=== PATIENT | female | born 2000 | race Caucasian/White ===

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

== ENCOUNTER 2019-02-07 16:36 | Emergency (ER) | payer BC ==
[~2019-02-07] VITALS: Ht 165.1 cm; Wt 90.9 kg
[~2019-02-07 16:36] MED LIST changes: +IBUP-844 PO
[2019-02-07] MEDS ORDERED: HYDROcodone/APAP 5 MG/325 MG (LORTAB) TAB PO ONE (17:15)
[2019-02-07] MEDS ORDERED: AUGMENTIN 875 MG TAB (AMOXICILLIN/CLAVULANATE) ONE (17:31)
--- NOTE | 2019-02-07 17:35 | Diagnostic Imaging Report ---
EXAMINATION: Right elbow radiographs, 3 views. COMPARISON: None. HISTORY: 18-year-old female, dog bite. FINDINGS: There are areas of questionable lucency within the soft tissues. There is no identified radiopaque foreign body. There is no elbow joint effusion. There is no identified acute fracture. There is no elbow joint dislocation. IMPRESSION: 1. Questionable areas of abnormal lucency within the soft tissues which could relate to a penetrating type injury. 2. No identified radiopaque foreign body. 3. No identified acute osseous abnormality. Dictated by: Dictated on workstation # [id number]
--- NOTE | 2019-02-07 17:48 | ED Integumentary General ---
General Chief Complaint: Bite-Animal/Human/Insect Stated Complaint: DOG BITE Nursing Triage Note: Pt amb to triage with c/o dog bite @ approx 1600 on this day. [place] up a dog fight when her sisters melisa dangelo bit her Rt forearm. Pt reports the vincent retriever is up to date on vaccines. Pt reports to be current on her tetanus vaccine. Controlled bleeding noted to bite wounds on Rt anterior and superior forearm. A&OX4. Source: patient Exam Limitations: no limitations History of Present Illness Date Seen by Provider: Feb 07, 2019 Time Seen by Provider: 17:07 Initial Comments 18-year-old female who presents to the emergency room with complaints of a dog bite to her right elbow. She reports that she was breaking up a fight between her sister's dog when the dog bit her right arm. She has 4 puncture wounds to the right elbow 2 on the anterior and 2 on the posterior surfaces. She is currently on her tetanus vaccine in the dog is up-to-date on all shots. Timing/Duration: just prior to arrival Associated Symptoms: denies symptoms Allergies and Home Medications Allergies Coded Allergies: NKANo Known Allergies (Unverified Allergy, Mild, 07/09/09) Home Medications Ibuprofen 600 Mg Tablet, 600 MG PO Q6HR Prescribed by: IBIS BANSAL on 08/26/18 0746 Jcq763/Iron Fumarate/FA/Dss 1 Each Tablet, 1 EACH PO DAILY, (Reported) Past Sjaszvx-Mjduqd-Wqedmr Hx Patient Social History Alcohol Use: Denies Use Recreational Drug Use: No Smoking Status: Never a Smoker 2nd Hand Smoke Exposure: No Recent Foreign Travel: No Contact w/Someone Who Travel: No Recent Infectious Disease Expo: No Recent Hopitalizations: No Ebola Symptoms: Denies Symptoms Listed Seasonal Allergies Seasonal Allergies: Yes Past Medical History Surgeries: No Respiratory: No Cardiac: No Neurological: No Genitourinary: No Gastrointestinal: No Musculoskeletal: No Endocrine: No HEENT: No Cancer: No Psychosocial: No Integumentary: No Blood Disorders: No Adverse Reaction/Blood Tranf: No Physical Exam Vital Signs Vital Signs - First Documented 02/07/19 16:54 Temp 36.9 Pulse 84 Resp 18 B/P (MAP) 139/90 Pulse Ox 98 Capillary Refill : Progress/Results/Core Measures Results/Orders My Orders Orders - DANIELLE ISIDRO Elbow, Right, 3 Views (02/07/19 17:07) Hydrocodone/Apap 5/325 Tablet (Lortab 5 (02/07/19 17:15) Amoxicillin/Clavulanate Tablet (Augmenti (02/08/19 07:00) Amoxicillin/Clavulanate Tablet (Augmenti (02/07/19 17:31) Medications Given in ED Current Medications Medications Dose Ordered Sig/[facility] Route Start Time Stop Time Status Last Admin Dose Admin Acetaminophen/ Hydrocodone Bitart 1 tab ONCE ONCE PO 02/07/19 17:15 02/07/19 17:21 DC 02/07/19 17:34 1 TAB Vital Signs/I&O 02/07/19 16:54 Temp 36.9 Pulse 84 Resp 18 B/P (MAP) 139/90 Pulse Ox 98 Departure Impression Primary Impression: Dog bite Disposition: 01 HOME, SELF-CARE Condition: Stable/Unchanged Departure-Patient Inst. Decision time for Depature: 17:47 Referrals: TIFF BLUM MD (PCP/Family) Primary Care Physician Patient Instructions: Animal Bites (DC) Add. Discharge Instructions: Take medication as directed. Follow-up with your primary care provider within 1 week for recheck. Watch for signs of infection such as increased redness, swelling, drainage, pain. Ice to the sore areas at 20 minute intervals. Tylenol and ibuprofen as directed by the bottle for pain relief. All discharge instructions reviewed with patient and/or family. Voiced understanding. Scripts Amoxicillin/Potassium Clav (Augmentin 875-125 Tablet) 1 Each Tablet 1 EACH PO BID for 7 Days, #14 TAB 0 Refills Prov: DANIELLE ISIDRO 02/07/19 DANIELLE ISIDRO Feb 07, 2019 17:48 POS
[2019-02-07] MEDS ORDERED: AMOX-358 PO (18:07)
[2019-02-08] MEDS ORDERED: AUGMENTIN 875 MG TAB (AMOXICILLIN/CLAVULANATE) PO SCH (07:00)
== END 2019-02-07 18:08 | disposition home or self-care (01) ==
LOC: EDUNIT# 16:36 → ER 16:38
DX: S51.051A Open bite, right elbow, initial encounter (principal); W54.0XXA Bitten by dog, initial encounter
CPT/HCPCS: 73080

== ENCOUNTER → 2022-03-11 | Outpatient (CLI) | payer BC ==
[~2022-03-11] MED LIST changes: +AMOX-358 PO
--- NOTE | 2022-03-11 16:45 | Diagnostic Imaging Report ---
PROCEDURE: US OB SINGLE FETUS <14 WKS. TECHNIQUE: Multiple real-time grayscale images were obtained over the gravid uterus in various projections. INDICATION: Check dates. EXAMINATION: OB sonogram less than 14 weeks 03/11/2022 FINDINGS: There is a single live intrauterine gestation currently measuring 14 weeks 6 days by today's sonogram. There is a heart rate of 156 bpm. Placenta is anterior with no evidence for previa. Estimated date of delivery is 09/03/2022. The maternal adnexa unremarkable. Ovaries not visualized. No free fluid noted. IMPRESSION: 1. Single live intrauterine gestation currently measuring 14 weeks 6 days with an estimated date of delivery of 09/03/2022. Full survey recommended at 18-20 weeks. Dictated by: Dictated on workstation # [id number]
== END ==
LOC: RAD 10:58
PROVIDERS: ATTEND Family Medicine
DX: Z34.92 Encounter for supervision of normal pregnancy, unspecified, second trimester (principal); Z3A.14 14 weeks gestation of pregnancy
CPT/HCPCS: 76801

== ENCOUNTER → 2022-03-15 | Outpatient (CLI) | payer BC ==
[2022-03-15 14:47] LABS: BASOPHILS % (AUTO) 0 % (0-10); EOSINOPHILS # (AUTO) 0.1 10^3/uL (0.0-0.3); EOSINOPHILS % (AUTO) 1 % (0-10); HEMATOCRIT 37 % (35-52); LYMPHOCYTES # (AUTO) 1.9 10^3/uL (1.0-4.0); LYMPHOCYTES % (AUTO) 20 % (12-44); MEAN CORPUSCULAR HEMOGLOBIN 30 pg (25-34); MEAN CORPUSCULAR HGB CONC 35 g/dL (32-36); MEAN CORPUSCULAR VOLUME 87 fL (80-99); MONOCYTES # (AUTO) 0.4 10^3/uL (0.0-1.0); MONOCYTES % (AUTO) 5 % (0-12); NEUTROPHILS # (AUTO) 6.9 10^3/uL (1.8-7.8); NEUTROPHILS % (AUTO) 74 % (42-75); PLATELET COUNT 193 10^3/uL (130-400); WHITE BLOOD COUNT 9.3 10^3/uL (4.3-11.0)
== END ==
LOC: LAB 14:14
PROVIDERS: ATTEND Family Medicine
DX: Z34.91 Encounter for supervision of normal pregnancy, unspecified, first trimester (principal); Z3A.00 Weeks of gestation of pregnancy not specified
CPT/HCPCS: 36415; 80055; 84443; 87389; 87491; 87591

== ENCOUNTER → 2022-04-24 | Outpatient (CLI) | payer BC ==
--- NOTE | 2022-04-24 16:23 | Diagnostic Imaging Report ---
INDICATION: patient, survey. TECHNIQUE: Multiple real-time grayscale images were obtained over the gravid uterus. COMPARISON: Comparison made with 03/11/2022. FINDINGS: A single live intrauterine fetus is seen measuring 20 weeks 4 days in size with sonographic EDC of 09/07/2022. There has been normal interval growth compared to the prior study. The fetus is in cephalic presentation. Amniotic fluid index is 8.9 cm. Placenta is anterior and without evidence of previa. heart rate is 146 BPM. Cervical length is 5.7 cm. Distance of the tip of the internal os to the placenta was 5.5 cm. There is no subchorionic bleed. There is no adnexal free fluid. survey demonstrates normal-appearing kidneys and bladder. Normal-appearing stomach was seen. Intracranial ventricles appear normal. Four-chamber heart view appeared normal. Normal views of the spine were seen. Three-vessel cord and cord insertion appear normal. Biometrical measurements are as follows: Biparietal 4.26 cm, age 19 weeks 0 days. Head circumference 17.8 cm, age 20 weeks 2 days. Abdominal circumference 15.48 cm, age 20 weeks 5 days. Femur length 3.69 cm, age 21 weeks 6 days. Sonographic estimate age: 20 weeks 4 days. Sonographic estimated date of delivery: 09/03/22. Estimated Weight: 391 gm (+/- 57 gm). LMP percentile: 36%. heart rate: 146 beats per minute. number: 1 of 1. IMPRESSION: Single live intrauterine fetus measuring 20 weeks 4 days in size with normal interval growth compared to the prior study. There is no detectable abnormality at this time. Dictated by: Dictated on workstation # [id number]
== END ==
LOC: RAD 13:16
PROVIDERS: ATTEND Family Medicine
DX: Z34.92 Encounter for supervision of normal pregnancy, unspecified, second trimester (principal); Z3A.20 20 weeks gestation of pregnancy
CPT/HCPCS: 76805

== ENCOUNTER → 2022-05-20 | Outpatient (CLI) | payer BC ==
[2022-05-20 10:25] LABS: BASOPHILS % (AUTO) 0 % (0-10); EOSINOPHILS # (AUTO) 0.1 10^3/uL (0.0-0.3); EOSINOPHILS % (AUTO) 1 % (0-10); HEMATOCRIT 36 % (35-52); HEMOGLOBIN 12.2 g/dL (11.5-16.0); LYMPHOCYTES % (AUTO) 16 % (12-44); MEAN CORPUSCULAR HEMOGLOBIN 30 pg (25-34); MEAN CORPUSCULAR HGB CONC 34 g/dL (32-36); MEAN CORPUSCULAR VOLUME 89 fL (80-99); MEAN PLATELET VOLUME 12.5 fL (9.0-12.2); MONOCYTES # (AUTO) 0.5 10^3/uL (0.0-1.0); MONOCYTES % (AUTO) 4 % (0-12); NEUTROPHILS # (AUTO) 9.4 10^3/uL (1.8-7.8); NEUTROPHILS % (AUTO) 77 % (42-75); PLATELET COUNT 172 10^3/uL (130-400); WHITE BLOOD COUNT 12.2 10^3/uL (4.3-11.0)
== END ==
LOC: LAB 08:56
PROVIDERS: ATTEND Family Medicine
DX: Z34.92 Encounter for supervision of normal pregnancy, unspecified, second trimester (principal); Z3A.00 Weeks of gestation of pregnancy not specified
CPT/HCPCS: 36415; 82947; 82950; 85025; 86900; 86901

== ENCOUNTER 2022-08-26 01:35 | Inpatient (IN) | payer BC, MEDICAID ==
[~2022-08-26] VITALS: Ht 167.7 cm; Wt 105.5 kg
--- OUTSIDE RECORDS SUMMARY | 2022-08-26 18:08 | XMS REPORT ---
Author Author [facility] Address Unknown Phone Unavailable Care Team Providers Care Dress Cap Maker Name Role Phone LUISA LEIGH Unavailable PROBLEMS Type Condition ICD9-CM Code IRN96-CH Code Onset Dates Condition S tatus W/U Status Risk SNOMED Code Notes Problem Enlarged tonsils J35.1 confirmed [id number] Problem Migraine with aura and without status migrainosu s, not intractable G43.109 confirmed [id number] Problem Sore throat J02.9 confirmed Problem Missed period N92.6 confirmed [id number] Problem Encounter for supervision of normal firs t in first trimester Z34.01 Dec, confirmed [id number] _Migrated ALLERGIES No Known Allergies ENCOUNTERS from 1999 to 2022-08-19 Encounter Location Date Provider Diagnosis [facility] [address] [facility] [id number] [place] [address] Aug, LUISA LEIGH Nausea with vomiting , unspecified R11.2 and Diarrhea, unspecified R19.7 IMMUNIZATIONS Vaccine Route Administration Date Status GARDASIL (HPV-3 DOSE) Unknown Feb 21, 2011 Pending GARDASIL (HPV-3 DOSE) Unknown Nov 12, 2010 Pending PRIVATE HEP B (PEDS/ADOLESCENT, 3-DOSE) Unknown Mar 26, 2000 Administered PRIVATE HEP B (PEDS/ADOLESCENT, 3-DOSE) Unknown May Administered influenza IIV3 (history) Unknown Dec 24, 2011 Pending influenza IIV3 (history) Unknown Jan 12, 2014 Pending PRIVATE TWINRIX (HEP A/B) IM Intramuscular Nov 05, 2021 Admin istered VFC PENTACEL (DTAP/HIB/IPV) Unknown 1999 Admi nistered VFC PENTACEL (DTAP/HIB/IPV) Unknown 1999 Admi nistered PRIVATE DTAP (DAPTACEL) Unknown Mar 14, 2002 Administ ered PRIVATE TDAP (ADACEL) Unknown September 11, 2011 Pending influenza IIV3 (history) Unknown Jan 14, 2013 Pending PRIVATE FLULAVAL QUAD 0.5ML (6 MO AND UP) 2019 IM Intramuscular Dec 22, 2018 Administered PRIVATE TDAP (BOOSTRIX) IM Intramuscular Nov 05, 2021 Adminis tered influenza IIV3 (history) Unknown Nov 26, 2010 Pending PRIVATE HEP A (PEDS/ADOLESCENT-2 DOSE) Unknown Oct 17 010 Pending PRIVATE VARICELLA Unknown September 11, 2011 Pending PRIVATE VARICELLA Unknown Oct 17, 2009 Pending GARDASIL (HPV-3 DOSE) Unknown Dec 25, 2012 Pending VFC PENTACEL (DTAP/HIB/IPV) Unknown 1999 Admi nistered PRIVATE KINRIX (DTaP/IPV) Unknown June 15, 2003 Admini stered PRIVATE HIB (PEDVAX-3 DOSE) Unknown Mar 26, 2000 Admi nistered PRIVATE HEP B (PEDS/ADOLESCENT, 3-DOSE) Unknown 1999 Administered PRIVATE PROQUAD (MMR/VARICELLA) Unknown Mar 26, 2000 Administered PRIVATE MMR Unknown June 15, 2003 Administered SOCIAL HISTORY Sex Assigned At : Social History Observation Description Sex Assigned At Unknown Alcohol Screen (Audit-C) Question Answer Notes Did you have a drink containing alcohol in the past year? No Points 0 Interpretation Negative Sexual History Question Answer Notes Had sex in the past 12 months (vaginal, oral, or anal)? Yes with Men only PHQ2 Question Answer Notes In the last 2 weeks, how often have you had little interest or pleasure in doing things? Not at all In the last 2 weeks, how often have you been feeling down, depressed, or hopeless? Not at all Total PHQ2 Score 0 REASON FOR REFERRAL No Information VITAL SIGNS Height 67 in Aug, Weight 187 lbs Aug, Weight-kg 84.82 kg Aug, Temperature 97.9 degrees Fahrenheit Aug, Heart Rate 100 bpm Aug, Respiratory Rate 20 bpm Aug, Oximetry 99 % Aug, BMI 29.29 kg/m2 Aug, Blood pressure systolic 120 mmHg Aug, Blood pressure diastolic 70 mmHg Aug, MEDICATIONS Medication SIG (Take, Route, Frequency, Duration) Notes Start Da te End Date Status Norethindrone 0.35 MG 1 tablet Orally Once a day for 28 day(s) Oct, Active Nabumetone 500 MG 1 tablet Orally TID PRN prn May, Active Nexplanon Active PROCEDURES No Information RESULTS No Results REASON FOR VISIT Abdominal pain, vomiting, diarrhea MEDICAL (GENERAL) HISTORY Type Description Date Medical History enlarged tonsils Hospitalization History childbirth only Goals Section No Information Health Concerns No Information MEDICAL EQUIPMENT No Information MENTAL STATUS No Information FUNCTIONAL STATUS No Information ASSESSMENTS Encounter Date Diagnosis Assessment Notes Treatment Notes Treatm ent Clinical Notes Aug, Nausea with vomiting, unspecified (ICD-10 - R11. 2) I recommend that you take a daily probiotic for at least 2 weeks. Please drink pleanty of fluids to keep hydrated. , Nausea and Vomiting: Care Instructions material was published Aug, Diarrhea, unspecified (ICD-10 - R19.7) Aug, Other Medications as d irected, supportive care and monitoring, rest as able, push fluids to maintain hydration. Office visit it not improving. Patient verbalized understanding of above instructions. PLAN OF TREATMENT Medication Medication Name Sig Start Date Stop Date Norethindrone 0.35 MG 1 tablet Orally Once a day for 28 day(s) 2 3 Oct, 2021 Treatment Notes Assessment Notes Clinical Notes Nausea with vomiting, unspecified I recommend that you take a daily probiotic for at least 2 weeks. Please drink pleanty of fluids to keep hydrated. , Nausea and Vomiting: Care Instructions material was published Future Test Test Name Order Date TEST, URINE (IN HOUSE) [id number] Next Appt Details if not improving with PCP or reg follow up Reason: Insurance Providers Payer Name Payer Address Payer Phone Insured Name Patient Relati onship to Insured Coverage Start Date Coverage End Date Subscriber Number Group Nu mber [facility] [address] [facility] [address] [phone] Lakshmi Augustin Self - patient is the insured [id number] [place] [address] [facility] [phone] Lakshmi Augustin Natural Child - Insured has Financial Responsibility [id number] MEDICATIONS ADMINISTERED Medication Instructions Date of Administration Dosage RHOGAM FULL DOSE May, DEPO MEDROL 80 MG/ML Nov, 80 mg ZOFRAN (IM) 2 MG/ML (PER 1 MG) 40 MG/20 ML 2019 6 mg DEPO PROVERA (150 MG/ML) Nov, 150 mg RHOGAM FULL DOSE May, 1500 U
[2022-08-26] MEDS ORDERED: MINERAL OIL 30 ML UDC TOP PRN (18:45)
[2022-08-26] MEDS ORDERED: LACTATED RINGERS 1,000 ML IV ONE (18:45)
[2022-08-26 19:09] VITALS: BP 133/68
[2022-08-26] MEDS: D5 LR IV SOLUTION 1,000 ML IV SCH (19:27)
[2022-08-26 19:36] LABS: BASOPHILS % (AUTO) 0 % (0-10); HEMATOCRIT 33 % (35-52); LYMPHOCYTES % (AUTO) 20 % (12-44); MEAN CORPUSCULAR VOLUME 84 fL (80-99); MEAN PLATELET VOLUME 13.1 fL (9.0-12.2)
[2022-08-26 19:38] LABS: EOSINOPHILS # (AUTO) 0.1 10^3/uL (0.0-0.3); EOSINOPHILS % (AUTO) 1 % (0-10); HEMOGLOBIN 10.7 g/dL (11.5-16.0); LYMPHOCYTES # (AUTO) 2.2 10^3/uL (1.0-4.0); MEAN CORPUSCULAR HEMOGLOBIN 27 pg (25-34); MEAN CORPUSCULAR HGB CONC 33 g/dL (32-36); MONOCYTES # (AUTO) 0.7 10^3/uL (0.0-1.0); MONOCYTES % (AUTO) 7 % (0-12); NEUTROPHILS # (AUTO) 7.9 10^3/uL (1.8-7.8); NEUTROPHILS % (AUTO) 72 % (42-75); PLATELET COUNT 194 10^3/uL (130-400); WHITE BLOOD COUNT 11.1 10^3/uL (4.3-11.0)
[2022-08-26 19:52] LABS: SMEAR SCAN COMMENT YES
[2022-08-26 21:22] VITALS: BP 130/67
[2022-08-26] MEDS ORDERED: CATHETER FLUSH 10 ML SYR IV SCH (22:00)
[2022-08-26 22:25] VITALS: BP 133/63
[2022-08-26 22:36] LABS: BILIRUBIN,URINE NEGATIVE (NEGATIVE); CLARITY,URINE CLEAR; COLOR,URINE YELLOW; GLUCOSE, URINE (UA) NEGATIVE (NEGATIVE); KETONES,URINE NEGATIVE (NEGATIVE); LEUKOCYTE ESTERASE ,URINE NEGATIVE (NEGATIVE); NITRITE,URINE NEGATIVE (NEGATIVE); PROTEIN,URINE NEGATIVE (NEGATIVE)
[2022-08-26 22:44] LABS: BACTERIA,URINE FEW /HPF
[2022-08-26 22:45] LABS: AMORPHOUS SEDIMENT,UR MOD AMOR URATES /LPF; GRANULAR CASTS,URINE 0-2 /LPF
[2022-08-26 23:22] VITALS: BP 118/66
[2022-08-27] VITALS (67 sets, daily range): BP systolic 97–135; BP diastolic 47–90
[2022-08-27] MEDS: D5 LR IV SOLUTION 1,000 ML IV SCH ×3 (04:54→18:30)
[2022-08-27] MEDS ORDERED: OXYTOCIN PRE-MIX DRIP 500 ML IV ONE (06:52)
[2022-08-27] MEDS ORDERED: OXYTOCIN PRE-MIX DRIP 500 ML IV SCH ×3 (07:00→23:45)
--- NOTE | 2022-08-27 07:15 | History & Physical-OB ---
OB - Chief Complaint & HPI Date/Time Date of Admission: Date of Admission: Aug 26, 2022 at 18:00 Date seen by a Provider: Aug 27, 2022 Time Seen by a Provider: 06:45 Chief Complaint/History OB-Reason for Admission/Chief: Induction of Labor (Due to maternal distance) Hx : 2 Hx Para: 1 Expected Date of Delivery: Sep 03, 2022 Gestational Age in Weeks: 38 Gestational Age in Days: 6 Indication for induction: maternal distance (Living in [facility]) Admission Nurse Assessment Rev: Yes History of Labs GBS negative Allergies and Home Medications Allergies Coded Allergies: NKANo Known Allergies (Unverified Allergy, Mild, 07/09/09) Patient Home Medication List Home Medication List Reviewed: Yes Amoxicillin/Potassium Clav (Augmentin 875-125 Tablet) 1 Each Tablet, 1 EACH PO BID Prescribed by: DANIELLE ISIDRO on 02/07/19 180 Ibuprofen (Ibu) 600 Mg Tablet, 600 MG PO Q6HR Prescribed by: IBIS BANSAL on 08/26/18 0746 Awx250/Iron Fumarate/FA/Dss ( 19 Tablet) 1 Each Tablet, 1 EACH PO DAILY, (Reported) Entered as Reported by: LARS THOMPSON on 07/30/18 2224 OB - History Hx of Present Care: Yes Ultrasounds: Normal mid trimester US Obstetrical Complications: None Medical Complications: None Delivery History Hx Blood Disorders: No Adverse Rxn to Tranfusion: No Patient Past Medical History No chronic medical problems Social History/Family History 2nd Hand Smoke Exposure: No Immunizations Influenza Vaccine Up-to-Date: Yes; Up-to-Date Hepatitis A: Yes Hepatitis B: Yes OB - Admission Exam Physical Exam Vitals: Vital Signs 08/26/22 08/27/22 08/27/22 19:09 01:22 06:22 Temp 36.5 Pulse 72 Resp 18 B/P (MAP) 99/55 (70) Pulse Ox 99 O2 Delivery Room Air HEENT: Moist Membranes Heart: Rhythm Normal Lungs: Clear Abdomen: Gravid Cervical Dilatation: Fingertip Effacement: 50% Station: -3 Membranes: Intact Heart Rate: 140's Accelerations: Accelerations Present Short Term Variability: Present Station Helper Variability: Average (6-25) Contractions on Admission: 6-10 Minutes Apart Intensity: Mild Moreau Scoring Tool (Modified) Dilation (cm): 1-2cm (1) Effacement (%): 31-51% (1) Descent/Station: -3 (0) Cervix Consistency: Medium(1) Cervix Position: Middle/Mid-Position (1) Add 1 point for: Each previous vaginal delivery (1) Moreau Score: 5 Labs Laboratory Tests Test 08/26/22 19:29 08/26/22 21:24 Range/Units White Blood Count 11.1 H 4.3-11.0 10^3/uL Red Blood Count 3.90 3.80-5.11 10^6/uL Hemoglobin 10.7 L 11.5-16.0 g/dL Hematocrit 33 L 35-52 % Mean Corpuscular Volume 84 80-99 fL Mean Corpuscular Hemoglobin 27 25-34 pg Mean Corpuscular Hemoglobin Concent 33 32-36 g/dL Red Cell Distribution Width 13.6 10.0-14.5 % Platelet Count 194 130-400 10^3/uL Mean Platelet Volume 13.1 H 9.0-12.2 fL Immature Granulocyte % (Auto) 1 % Neutrophils (%) (Auto) 72 42-75 % Lymphocytes (%) (Auto) 20 12-44 % Monocytes (%) (Auto) 7 0-12 % Eosinophils (%) (Auto) 1 0-10 % Basophils (%) (Auto) 0 0-10 % Neutrophils # (Auto) 7.9 H 1.8-7.8 10^3/uL Lymphocytes # (Auto) 2.2 1.0-4.0 10^3/uL Monocytes # (Auto) 0.7 0.0-1.0 10^3/uL Eosinophils # (Auto) 0.1 0.0-0.3 10^3/uL Basophils # (Auto) 0.0 0.0-0.1 10^3/uL Immature Granulocyte # (Auto) 0.1 0.0-0.1 10^3/uL Percent Immature Platelet Fraction 18.9 H 0.0-7.6 % Syphilis Total Antibody Negative Negative Smear Scan YES Urine Color YELLOW Urine Clarity CLEAR Urine pH 6.0 5-9 Urine Specific [place] 1.010 L 1.016-1.022 Urine Protein NEGATIVE NEGATIVE Urine Glucose (UA) NEGATIVE NEGATIVE Urine Ketones NEGATIVE NEGATIVE Urine Nitrite NEGATIVE NEGATIVE Urine Bilirubin NEGATIVE NEGATIVE Urine Urobilinogen 0.2 < = 1.0 MG/DL Urine Leukocyte Esterase NEGATIVE NEGATIVE Urine RBC (Auto) NEGATIVE NEGATIVE Urine RBC NONE /HPF Urine WBC NONE /HPF Urine Squamous Epithelial Cells 2-5 /HPF Urine Crystals PRESENT H /LPF Urine Amorphous Sediment MOD KEVIN URATES H /LPF Urine Bacteria FEW H /HPF Urine Casts PRESENT /LPF Urine Granular Casts 0-2 H /LPF Urine Mucus NEGATIVE /LPF Urine Culture Indicated NO OB - Assessment/Plan/Diagnosis Assessment Assessment: induction of labor (Due to maternal distance) Admission Dx 1. Intrauterine at 39 weeks Admission Status: Inpatient Order (span 2 midnights) Reason for Inpatient Admission: Labor and delivery Plan Plan: Induction Induction Method: per Misoprostol Protocol Reason for Induction: Maternal distance living in [facility] Other Plan -Pitocin -epidural GALDINO WU MD Aug 27, 2022 07:15
[2022-08-27] MEDS ORDERED: fentaNYL 2 mcg/ml BUPIVA 0.125 100 ML ONE (09:35)
[2022-08-27] MEDS ORDERED: ONDANSETRON 4 MG/2 ML (SDV) Z0FRAN IV PRN (09:45)
[2022-08-27] MEDS ORDERED: diphenhydrAMINE 50 MG/ML INJ (BENADRYL) IV PRN (09:45)
[2022-08-27] MEDS ORDERED: LACTATED RINGERS 1,000 ML IV SCH (09:45)
[2022-08-27] MEDS ORDERED: NALOXONE 0.4 MG/ML 1 ML (NARCAN) VIAL IV PRN ×2 (09:45→23:45)
[2022-08-27] MEDS ORDERED: fentaNYL INJ 100 MCG/2 ML AMP ONE ×2 (09:56→22:29)
[2022-08-27] MEDS ORDERED: BUPIVACAINE 0.25% 10 ML (SENSORCAINE) VIAL ONE ×2 (09:56→22:29)
[2022-08-27] MEDS: fentaNYL 2 mcg/ml BUPIVA 0.125 100 ML EPI SCH ×2 (10:18→18:17)
[2022-08-27] MEDS ORDERED: METOCLOPRAMIDE INJ 10 MG/2 ML (REGLAN) ONE (21:58)
[2022-08-27] MEDS ORDERED: CITRIC ACID/SOB CIT (BICITRA) 30 ML UDC ONE (21:58)
[2022-08-27] MEDS ORDERED: FAMOTIDINE 20MG/2ML IV (PEPCID) ONE (21:58)
[2022-08-27] MEDS ORDERED: METOCLOPRAMIDE INJ 10 MG/2 ML (REGLAN) IV ONE (22:00)
[2022-08-27] MEDS ORDERED: CITRIC ACID/SOB CIT (BICITRA) 30 ML UDC PO ONE (22:00)
[2022-08-27] MEDS ORDERED: FAMOTIDINE 20MG/2ML IV (PEPCID) IV ONE (22:00)
[2022-08-27] MEDS ORDERED: LACTATED RINGERS 1,000 ML IV PRN ×2 (22:00)
[2022-08-27] MEDS ORDERED: NS (IVPB) 50 ML ONE (22:04)
[2022-08-27] MEDS ORDERED: ceFAZolin INJECTION 2,000 MG ONE (22:04)
--- NOTE | 2022-08-27 22:07 | Labor Progress Note ---
Labor Progress Note Labor Progress Note Date Seen by Provider: Aug 27, 2022 Time Seen by Provider: 09:25 Subjective: Patient has been in labor over the past 24 hours. Cytotec was initiated last evening at 9 PM. Amniotomy performed late morning on August 27 with clear fluid noted. She has been christopher since Pitocin started at 06 30. Objective: Cervical exam: 5 cm Consistency: Soft Position: -3 Presentation: Vertex heart tones: 140 beats per minute, currently with good variability, strip is reactive. At 2100 today with 22 milliunits of Pitocin there was repetitive late decelerations. Tocometer: 23 ctx/10 minutes Assessment/Plan: Lakshmi Augustin is a (22 /Para 2 / 1,Gestational Age (wks)39 in labor With the unchanged cervical dilation over the past several hours essentially staying at 5 cm and having evidence for late decelerations (category 2), I have spoke with patient as well as the family regarding the the safer delivery for infant would be primary section. Dr. Rodríguez notified that she will be here shortly. Nursing supervisor nurse has also notified surgery crew. Vitals - Labs Vital Signs - I&O Vital Signs Date Time Temp Pulse Resp B/P (MAP) Pulse Ox O2 Delivery O2 Flow Rate FiO2 08/27/22 20:08 62 18 117/71 (86) Room Air 08/27/22 19:51 65 18 128/73 (91) Room Air 08/27/22 19:37 66 18 132/73 (92) Room Air 08/27/22 19:22 55 18 112/58 (76) Room Air 08/27/22 19:07 35.9 68 18 132/62 (85) Room Air 08/27/22 18:50 68 18 131/67 (88) Room Air 08/27/22 18:35 70 18 121/66 (84) Room Air 08/27/22 18:20 73 18 119/73 (88) 99 Room Air 08/27/22 18:05 56 18 115/71 (86) 98 Room Air 08/27/22 17:50 65 18 115/65 (82) 98 Room Air 08/27/22 17:35 36.5 65 18 111/71 (84) 99 Room Air 08/27/22 17:20 75 18 110/71 (84) 99 Room Air 08/27/22 17:05 73 18 116/69 (85) 98 Room Air 08/27/22 16:50 36.1 63 18 114/67 (83) 98 Room Air 08/27/22 16:35 70 18 128/73 (91) 98 Room Air 08/27/22 16:20 61 18 116/72 (87) 99 Room Air 08/27/22 16:05 63 18 114/68 (83) 98 Room Air 08/27/22 15:50 36.7 72 18 112/59 (76) 100 Room Air 08/27/22 15:35 63 18 109/64 (79) 99 Room Air 08/27/22 15:20 60 18 110/62 (78) 99 Room Air 08/27/22 15:05 73 18 114/65 (81) 98 Room Air 08/27/22 14:50 36.3 78 18 116/74 (88) 99 Room Air 08/27/22 14:35 67 18 100 Room Air 08/27/22 14:20 78 18 113/71 (85) 99 Room Air 08/27/22 14:05 74 18 119/75 (90) 99 Room Air 08/27/22 13:50 36.0 78 18 116/70 (85) 99 Room Air 08/27/22 13:35 61 18 97/57 (70) 99 Room Air 08/27/22 13:20 55 18 108/62 (77) 99 Room Air 08/27/22 13:05 56 18 121/68 (85) 98 Room Air 08/27/22 12:50 36.4 59 18 111/54 (73) 100 Room Air 08/27/22 12:35 75 18 114/61 (78) 98 Room Air 08/27/22 12:20 73 18 119/68 (85) 99 Room Air 08/27/22 12:05 36.1 66 18 115/73 (87) 99 Room Air 08/27/22 11:50 73 18 116/63 (80) 99 Room Air 08/27/22 11:35 70 18 115/72 (86) 99 Room Air 08/27/22 11:30 64 99 08/27/22 11:10 35.8 68 18 120/69 (86) 100 Room Air 08/27/22 11:00 74 99 08/27/22 10:45 87 18 117/66 (83) 98 Room Air 08/27/22 10:40 86 18 119/67 (84) 99 Room Air 08/27/22 10:35 84 18 127/68 (87) 99 Room Air 08/27/22 10:30 80 18 116/65 (82) 99 Room Air 08/27/22 10:25 91 18 116/64 (81) 98 Room Air 08/27/22 10:20 82 18 125/65 (85) 98 Room Air 08/27/22 10:15 79 18 129/65 (86) 98 Room Air 08/27/22 10:10 81 18 119/82 (94) 99 Room Air 08/27/22 10:05 85 18 127/77 (94) 98 Room Air 08/27/22 10:00 36.4 80 18 123/71 (88) 100 Room Air 08/27/22 09:30 74 18 113/67 (82) Room Air 08/27/22 09:00 36.5 75 18 133/60 (84) Room Air 08/27/22 08:30 75 18 125/63 (83) Room Air 08/27/22 08:00 89 18 131/69 (89) Room Air 08/27/22 07:30 36.3 72 18 107/60 (76) Room Air 08/27/22 06:22 72 18 99/55 (70) Room Air 08/27/22 05:22 83 18 115/69 (84) Room Air 08/27/22 04:22 72 18 98/57 (71) Room Air 08/27/22 03:22 78 18 121/82 (95) Room Air 08/27/22 02:23 82 18 135/82 (99) Room Air 08/27/22 01:22 36.5 80 18 135/72 (93) Room Air 08/27/22 00:22 77 18 120/79 (93) Room Air 08/26/22 23:22 66 18 118/66 (83) Room Air 08/26/22 22:25 74 18 133/63 (86) Room Air I & O 08/27/22 07:00 Intake Total 2000 ml Balance 2000 ml GALDINO WU MD Aug 27, 2022 22:07
--- NOTE | 2022-08-27 22:25 | OB Triage Report ---
Standard Progress Note Progress Notes/Assess & Plan Date Seen by a Provider: Aug 27, 2022 Time Seen by a Provider: 22:15 Expected Date of Delivery: Sep 03, 2022 Gestational Age in Weeks: 38 Gestational Age in Days: 6 LMP/SHANNAN Comment: IUP @ 39w Progress/Assessment & Plan This 22yo presented for IOL 2nd to maternal request d/t distance from the hospital. Pt was FT upon admission and progressed to 5cm. Pt was on 22mu/min of Pitocin w/o further progression and began to have decelerations. The Pitocin was turned off and still continued to have decels. It was decided to proceed to LTCS. Risks benefits and alternatives d/w pt including but not limited infection bleeding injury to bowel bladder ureters, nerve and limb damage VTE anesthesia risks Benefits of avoiding hypoxia to fetus and alternatives of continuing to monitor but run risk of injury &/or . Pt verbalized understanding and had all of her questions answered to her satisfaction and consented to proceed. Diagnosis/Problems Diagnosis/Problems (1) 39 weeks gestation of (2) Failure to progress in labor Assessment & Plan: proceed to LTCS (3) intolerance to labor, delivered, current hospitalization JESSICA WEI DO Aug 27, 2022 22:25
[2022-08-27] MEDS ORDERED: LIDOCAINE PF 2% 5 ML (XYLOCAINE) VIAL ONE ×2 (22:29→23:19)
[2022-08-27] MEDS ORDERED: KETAMINE HCL 100 MG/ML 5 ML VIAL ONE (22:53)
[2022-08-27] MEDS ORDERED: proPOfol 200 MG/20 ML (DIPRIVAN) VIAL IV ONE ×2 (23:08→23:09)
[2022-08-27] MEDS ORDERED: KETOROLAC 30 MG/ML VIAL ONE (23:44)
--- NOTE | 2022-08-27 23:44 | Cesarean Section Operative ---
Procedure Procedure Note Pre-operative Diagnosis: Lakshmi coon (22 /Para 2 / 1,Gestational Age (wks)39with failure to progress and intolerance to labor Post-operative Diagnosis: same Plus liveborn male Procedure: Primarylow transverse section Physician: JESSICA WEI Slot Tag Inserter: GALDINO WU MD Estimated blood loss: 750 mL Disposition: Stable to recovery room Findings: Liveborn male infant, Apgars 8/9, weight 6#11oz, intact placenta, 3vc, normal appearing uterus, tubes, and ovaries. Indications:Lakshmi coon (22 /Para 2 / 1,Gestational Age (wks)39 presenting for Induction of labor secondary to maternal request Due to patient's distance from the hospital. Patient underwentInduction of labor progressed to 5 cm and then arrested. The fetus did started developing decelerations was category 2 tracing and it was decided to proceed to primary low-transverse section. The patient verbalized understanding of the risk benefits and alternatives signed consents and was ready to proceed.. Procedure Details: The patient was seen in pre-op and the procedure was discussed with the patient in full, including the risks, benefits, and alternatives. All questions were answered. The patient was taken to the operating room and a time out was performed, verifying patient and procedure. After epidural anesthesia was bolused by our anesthesia colleagues, the patient was placed in the dorsal supine with leftward tilt for uterine displacement.~ Her abdomen was then prepped and draped in the typical sterile fashion.Anesthesia was tested and patient was still uncomfortable. Anesthesia gave some extra medication to help with her comfort. After anesthesia was confirmed, a Pfannenstiel skin incision was made using a scalpel and carried down through the underlying fascia. The fascia was incised in the midline and tented up using Dawn clamps and extended bilaterally. On both the inferior and superior fascia side the rectus muscle was dissected off bluntly and sharply using Choi scissors.The rectus abdominis was in the midline and the peritoneum was identified and entered bluntly in the midline. This was then stretched laterally using manual strength. After entering the abdominal cavity and confirming lack of intraperitoneal adhesions, a large Ajith retractor was placed and the lower uterine segment was visualized. A bladder flap was created with the use of Metzenbaum scissors.~ A scalpel was utilized to make a low transverse uterine incision. Amniotomy was performed with blunt dissection with return of clear fluid. The 's head was grasped and brought to the level of the incision. Fundal pressure was applied and infant was delivered without difficulty. Mouth and nares were suctioned with bulb suction. After 30 seconds the umbilical cord was clamped and cut, the was handed off to the Dr. Wu. A section of cord was preserved and a sample of cord blood was then obtained. The placenta was delivered intact via uterine massage. The uterus was exteriorized and cleared of all clots and debris. The uterine incision was closed using 0 Vicryl in a running locked fashion. A second imbricated layer was placed using 0 Vicryl in a running fashion as well. The uterus was flexed forward and the posterior rectouterine space was inspected and cleared of all clots and debris. Again the hysterotomy site was examined and hemostasis was observed. The bilateral tubes and ovaries appeared normal. The uterus was placed back into the abdominal cavity and abdominal gutters were cleared of all clots and debris. A final check of the uterine incision showed it to be hemostatic. The peritoneum was closed using 0 Vicryl in a running fashion. The fascia was closed with 1 Vicryl in a running fashion. The subcutaneous space was hemostatic, and irrigated. The subcutaneous space was closed with 2-0 Vicryl in a running fashion. The skin was then closed using 4-0 Monocryl in a running sub cuticular fashion. The skin edges were reapproximated together and were hemostatic. Dermabond was applied. All sponge, lap and needle counts were correct X3 at the end of the procedure per nursing. Vitals - Labs Vital Signs - I&O Vital Signs Date Time Temp Pulse Resp B/P (MAP) Pulse Ox O2 Delivery O2 Flow Rate FiO2 08/27/22 22:37 80 18 126/69 (88) Room Air 08/27/22 22:21 95 18 132/75 (94) Room Air 08/27/22 22:07 77 18 135/72 (93) Room Air 08/27/22 21:22 54 18 110/70 (83) Room Air 08/27/22 21:06 56 18 116/69 (85) Room Air 08/27/22 20:52 66 18 123/66 (85) Room Air 08/27/22 20:37 54 18 117/67 (84) Room Air 08/27/22 20:23 60 18 115/64 (81) Room Air 08/27/22 20:08 62 18 117/71 (86) Room Air 08/27/22 19:51 65 18 128/73 (91) Room Air 08/27/22 19:37 66 18 132/73 (92) Room Air 08/27/22 19:22 55 18 112/58 (76) Room Air 08/27/22 19:07 35.9 68 18 132/62 (85) Room Air 08/27/22 18:50 68 18 131/67 (88) Room Air 08/27/22 18:35 70 18 121/66 (84) Room Air 08/27/22 18:20 73 18 119/73 (88) 99 Room Air 08/27/22 18:05 56 18 115/71 (86) 98 Room Air 08/27/22 17:50 65 18 115/65 (82) 98 Room Air 08/27/22 17:35 36.5 65 18 111/71 (84) 99 Room Air 08/27/22 17:20 75 18 110/71 (84) 99 Room Air 08/27/22 17:05 73 18 116/69 (85) 98 Room Air 08/27/22 16:50 36.1 63 18 114/67 (83) 98 Room Air 08/27/22 16:35 70 18 128/73 (91) 98 Room Air 08/27/22 16:20 61 18 116/72 (87) 99 Room Air 08/27/22 16:05 63 18 114/68 (83) 98 Room Air 08/27/22 15:50 36.7 72 18 112/59 (76) 100 Room Air 08/27/22 15:35 63 18 109/64 (79) 99 Room Air 08/27/22 15:20 60 18 110/62 (78) 99 Room Air 08/27/22 15:05 73 18 114/65 (81) 98 Room Air 08/27/22 14:50 36.3 78 18 116/74 (88) 99 Room Air 08/27/22 14:35 67 18 100 Room Air 08/27/22 14:20 78 18 113/71 (85) 99 Room Air 08/27/22 14:05 74 18 119/75 (90) 99 Room Air 08/27/22 13:50 36.0 78 18 116/70 (85) 99 Room Air 08/27/22 13:35 61 18 97/57 (70) 99 Room Air 08/27/22 13:20 55 18 108/62 (77) 99 Room Air 08/27/22 13:05 56 18 121/68 (85) 98 Room Air 08/27/22 12:50 36.4 59 18 111/54 (73) 100 Room Air 08/27/22 12:35 75 18 114/61 (78) 98 Room Air 08/27/22 12:20 73 18 119/68 (85) 99 Room Air 08/27/22 12:05 36.1 66 18 115/73 (87) 99 Room Air 08/27/22 11:50 73 18 116/63 (80) 99 Room Air 08/27/22 11:35 70 18 115/72 (86) 99 Room Air 08/27/22 11:30 64 99 08/27/22 11:10 35.8 68 18 120/69 (86) 100 Room Air 08/27/22 11:00 74 99 08/27/22 10:45 87 18 117/66 (83) 98 Room Air 08/27/22 10:40 86 18 119/67 (84) 99 Room Air 08/27/22 10:35 84 18 127/68 (87) 99 Room Air 08/27/22 10:30 80 18 116/65 (82) 99 Room Air 08/27/22 10:25 91 18 116/64 (81) 98 Room Air 08/27/22 10:20 82 18 125/65 (85) 98 Room Air 08/27/22 10:15 79 18 129/65 (86) 98 Room Air 08/27/22 10:10 81 18 119/82 (94) 99 Room Air 08/27/22 10:05 85 18 127/77 (94) 98 Room Air 08/27/22 10:00 36.4 80 18 123/71 (88) 100 Room Air 08/27/22 09:30 74 18 113/67 (82) Room Air 08/27/22 09:00 36.5 75 18 133/60 (84) Room Air 08/27/22 08:30 75 18 125/63 (83) Room Air 08/27/22 08:00 89 18 131/69 (89) Room Air 08/27/22 07:30 36.3 72 18 107/60 (76) Room Air 08/27/22 06:22 72 18 99/55 (70) Room Air 08/27/22 05:22 83 18 115/69 (84) Room Air 08/27/22 04:22 72 18 98/57 (71) Room Air 08/27/22 03:22 78 18 121/82 (95) Room Air 08/27/22 02:23 82 18 135/82 (99) Room Air 08/27/22 01:22 36.5 80 18 135/72 (93) Room Air 08/27/22 00:22 77 18 120/79 (93) Room Air I & O 08/27/22 07:00 Intake Total 2000 ml Balance 2000 ml JESSICA WEI 14, 2023 23:43
[2022-08-27] MEDS ORDERED: HYDROcodone/APAP 5 MG/325 MG (LORTAB) TAB PO PRN (23:45)
[2022-08-27] MEDS ORDERED: TETANUS,DIPTH,PERTUSS P/F (BOOSTRIX) 0.5 ML VIAL IM SCH (23:45)
[2022-08-27] MEDS ORDERED: D5 LR IV SOLUTION 1,000 ML IV SCH (23:45)
[2022-08-27] MEDS ORDERED: morphine INJ 4 MG/ML 1 ML (VIAL/SYRINGE) IV PRN (23:45)
[2022-08-27] MEDS ORDERED: ONDANSETRON 4 MG/2 ML (SDV) Z0FRAN IVP PRN (23:45)
[2022-08-27] MEDS ORDERED: MEASLES,MUMPS,RUBELLA 1 EA INJ SC SCH (23:45)
[2022-08-28] VITALS (9 sets, daily range): BP systolic 108–136; BP diastolic 64–77
[2022-08-28] MEDS: KETOROLAC 15 MG/ML VIAL IV SCH ×4 (00:03→18:03)
[2022-08-28] MEDS: HYDROcodone/APAP 5 MG/325 MG (LORTAB) TAB PO PRN ×3 (00:54→16:38)
[2022-08-28] MEDS ORDERED: CATHETER FLUSH 10 ML SYR IV SCH (06:00)
[2022-08-28 06:21] LABS: BASOPHILS % (AUTO) 0 % (0-10); EOSINOPHILS % (AUTO) 0 % (0-10); HEMATOCRIT 28 % (35-52); HEMOGLOBIN 9.1 g/dL (11.5-16.0); MEAN CORPUSCULAR HGB CONC 33 g/dL (32-36); MEAN PLATELET VOLUME 13.2 fL (9.0-12.2)
[2022-08-28 06:22] LABS: LYMPHOCYTES # (AUTO) 1.8 10^3/uL (1.0-4.0); LYMPHOCYTES % (AUTO) 11 % (12-44); MEAN CORPUSCULAR HEMOGLOBIN 28 pg (25-34); MEAN CORPUSCULAR VOLUME 85 fL (80-99); MONOCYTES # (AUTO) 0.9 10^3/uL (0.0-1.0); MONOCYTES % (AUTO) 5 % (0-12); NEUTROPHILS # (AUTO) 13.8 10^3/uL (1.8-7.8); NEUTROPHILS % (AUTO) 83 % (42-75); PLATELET COUNT 157 10^3/uL (130-400); WHITE BLOOD COUNT 16.7 10^3/uL (4.3-11.0)
--- NOTE | 2022-08-28 07:30 | Postpartum Progress Note ---
Note Note Day #1 Subjective: Patient is without complaints. Ambulating, voiding. Tolerating a regular diet without nausea or vomiting. Normal lochia. Pain is well controlled with oral pain medications. . [] Objective: [] Physical Exam: General - Alert and oriented, no apparent distress Breasts are symmetrical no erythema, edema or engorgement Abdomen - Soft, appropriately tender to palpation, non-distended, fundus firm at umbilicus Incision clean dry intact Lochia minimal Extremities - no edema, negative Seven's bilaterally Assessment: [] post- day #1 status post low transverse section Recovering well, hemodynamically stable Plan: Routine care. Encourage breast feeding. Encourage ambulation. Ferrous sulfate supplementation. Plan for discharge [] Vitals - Labs Vital Signs - I&O Vital Signs Date Time Temp Pulse Resp B/P (MAP) Pulse Ox O2 Delivery O2 Flow Rate FiO2 08/28/22 05:40 35.9 77 16 108/67 (81) 98 Room Air 08/28/22 01:26 36.2 71 16 115/64 (81) 96 Room Air 08/28/22 00:39 36.2 18 114/70 (85) 98 Room Air 08/28/22 00:24 36.2 18 119/66 (83) 97 Room Air 08/28/22 00:09 36.2 18 117/68 (84) 97 Room Air 08/27/22 23:54 36.1 18 109/47 (67) 98 Room Air 08/27/22 23:39 36.1 18 109/90 (96) 98 Room Air 08/27/22 22:37 80 18 126/69 (88) Room Air 08/27/22 22:21 95 18 132/75 (94) Room Air 08/27/22 22:07 77 18 135/72 (93) Room Air 08/27/22 21:22 54 18 110/70 (83) Room Air 08/27/22 21:06 56 18 116/69 (85) Room Air 08/27/22 20:52 66 18 123/66 (85) Room Air 08/27/22 20:37 54 18 117/67 (84) Room Air 08/27/22 20:23 60 18 115/64 (81) Room Air 08/27/22 20:08 62 18 117/71 (86) Room Air 08/27/22 19:51 65 18 128/73 (91) Room Air 08/27/22 19:37 66 18 132/73 (92) Room Air 08/27/22 19:22 55 18 112/58 (76) Room Air 08/27/22 19:07 35.9 68 18 132/62 (85) Room Air 08/27/22 18:50 68 18 131/67 (88) Room Air 08/27/22 18:35 70 18 121/66 (84) Room Air 08/27/22 18:20 73 18 119/73 (88) 99 Room Air 08/27/22 18:05 56 18 115/71 (86) 98 Room Air 08/27/22 17:50 65 18 115/65 (82) 98 Room Air 08/27/22 17:35 36.5 65 18 111/71 (84) 99 Room Air 08/27/22 17:20 75 18 110/71 (84) 99 Room Air 08/27/22 17:05 73 18 116/69 (85) 98 Room Air 08/27/22 16:50 36.1 63 18 114/67 (83) 98 Room Air 08/27/22 16:35 70 18 128/73 (91) 98 Room Air 08/27/22 16:20 61 18 116/72 (87) 99 Room Air 08/27/22 16:05 63 18 114/68 (83) 98 Room Air 08/27/22 15:50 36.7 72 18 112/59 (76) 100 Room Air 08/27/22 15:35 63 18 109/64 (79) 99 Room Air 08/27/22 15:20 60 18 110/62 (78) 99 Room Air 08/27/22 15:05 73 18 114/65 (81) 98 Room Air 08/27/22 14:50 36.3 78 18 116/74 (88) 99 Room Air 08/27/22 14:35 67 18 100 Room Air 08/27/22 14:20 78 18 113/71 (85) 99 Room Air 08/27/22 14:05 74 18 119/75 (90) 99 Room Air 08/27/22 13:50 36.0 78 18 116/70 (85) 99 Room Air 08/27/22 13:35 61 18 97/57 (70) 99 Room Air 08/27/22 13:20 55 18 108/62 (77) 99 Room Air 08/27/22 13:05 56 18 121/68 (85) 98 Room Air 08/27/22 12:50 36.4 59 18 111/54 (73) 100 Room Air 08/27/22 12:35 75 18 114/61 (78) 98 Room Air 08/27/22 12:20 73 18 119/68 (85) 99 Room Air 08/27/22 12:05 36.1 66 18 115/73 (87) 99 Room Air 08/27/22 11:50 73 18 116/63 (80) 99 Room Air 08/27/22 11:35 70 18 115/72 (86) 99 Room Air 08/27/22 11:30 64 99 08/27/22 11:10 35.8 68 18 120/69 (86) 100 Room Air 08/27/22 11:00 74 99 08/27/22 10:45 87 18 117/66 (83) 98 Room Air 08/27/22 10:40 86 18 119/67 (84) 99 Room Air 08/27/22 10:35 84 18 127/68 (87) 99 Room Air 08/27/22 10:30 80 18 116/65 (82) 99 Room Air 08/27/22 10:25 91 18 116/64 (81) 98 Room Air 08/27/22 10:20 82 18 125/65 (85) 98 Room Air 08/27/22 10:15 79 18 129/65 (86) 98 Room Air 08/27/22 10:10 81 18 119/82 (94) 99 Room Air 08/27/22 10:05 85 18 127/77 (94) 98 Room Air 08/27/22 10:00 36.4 80 18 123/71 (88) 100 Room Air 08/27/22 09:30 74 18 113/67 (82) Room Air 08/27/22 09:00 36.5 75 18 133/60 (84) Room Air 08/27/22 08:30 75 18 125/63 (83) Room Air 08/27/22 08:00 89 18 131/69 (89) Room Air 08/27/22 07:30 36.3 72 18 107/60 (76) Room Air I & O 08/28/22 07:00 Output Total 1000 ml Balance -1000 ml Labs Laboratory Tests 08/28/22 06:05: White Blood Count 16.7H, Red Blood Count 3.27L, Hemoglobin 9.1L, Hematocrit 28L, Mean Corpuscular Volume 85, Mean Corpuscular Hemoglobin 28, Mean Corpuscular Hemoglobin Concent 33, Red Cell Distribution Width 13.5, Platelet Count 157, Mean Platelet Volume 13.2H, Immature Granulocyte % (Auto) 1, Neutrophils (%) (Auto) 83H, Lymphocytes (%) (Auto) 11L, Monocytes (%) (Auto) 5, Eosinophils (%) (Auto) 0, Basophils (%) (Auto) 0, Neutrophils # (Auto) 13.8H, Lymphocytes # (Auto) 1.8, Monocytes # (Auto) 0.9, Eosinophils # (Auto) 0.0, Basophils # (Auto) 0.0, Immature Granulocyte # (Auto) 0.1, Percent Immature Platelet Fraction 17.7H JESSICA WEI DO Aug 28, 2022 07:30
[2022-08-28] MEDS ORDERED: ACHD5005 PO (08:34)
[2022-08-28] MEDS: DOCUSATE SODIUM 100 MG (COLACE) CAP PO SCH ×2 (09:14→21:01)
--- NOTE | 2022-08-28 10:39 | Anesthesia-Regional Post-Op ---
Regional Patient Condition Mental Status: Alert, Oriented x3 Circulation: Same as Pre-Op Headache: Absent Sensation: Full Recovery Motor Block: Absent Post Op Complications Complications None Follow Up Care/Instructions Patient Instructions None needed. Anesthesia/Patient Condition Patient is doing well, no complaints, stable vital signs, no apparent adverse anesthesia problems. No complications reported per nursing. YENNI ARREDONDO CRNA Aug 28, 2022 10:39
[2022-08-28] MEDS: METOCLOPRAMIDE 10 MG (REGLAN) TAB PO SCH ×2 (11:56→18:03)
[2022-08-29] MEDS: METOCLOPRAMIDE 10 MG (REGLAN) TAB PO SCH ×2 (00:23→05:49)
[2022-08-29] MEDS: IBUPROFEN 600 MG (MOTRIN) TAB PO SCH ×2 (00:24→05:50)
[2022-08-29 00:27] VITALS: BP 140/80
[2022-08-29 05:59] VITALS: BP 134/80
--- NOTE | 2022-08-29 07:18 | Postpartum Progress Note ---
Note Note Day # 2 Subjective: Patient is without complaints. Ambulating, voiding. Tolerating a regular diet without nausea or vomiting. Normal lochia. Pain is well controlled with oral pain medications.Breast-feeding going well. Patient would like to go home today. Objective: [] Physical Exam: General - Alert and oriented, no apparent distress Breast symmetrical no erythema, edema or engorgement Abdomen - Soft, appropriately tender to palpation, non-distended, fundus firm at umbilicus Incision clean dry intact no signs or symptoms of infection Lochia minimal Extremities - no edema, negative Seven's bilaterally Assessment: [] post- day # 2 Status post section Recovering well, hemodynamically stable Plan: Routine care. Encourage breast feeding. Encourage ambulation. Ferrous sulfate supplementation. Plan for discharge Today Vitals - Labs Vital Signs - I&O Vital Signs Date Time Temp Pulse Resp B/P (MAP) Pulse Ox O2 Delivery O2 Flow Rate FiO2 08/29/22 05:59 36.7 74 18 134/80 (98) 99 Room Air 08/29/22 00:27 36.5 79 18 140/80 (100) 99 Room Air 08/28/22 20:17 36.4 92 18 120/77 (91) 97 Room Air 08/28/22 16:38 36.5 88 18 136/69 (91) 98 Room Air 08/28/22 11:56 36.8 88 18 111/70 (84) 97 Room Air 08/28/22 09:00 35.9 77 16 108/67 (81) 98 Room Air I & O 08/29/22 07:00 Intake Total 1800 ml Output Total 2200 ml Balance -400 ml JESSICA WEI DO Aug 29, 2022 07:18
[2022-08-29] MEDS ORDERED: ACHD5005 PO (07:20)
--- NOTE | 2022-08-29 07:26 | Discharge Summary ---
Discharge Summary Hospital Course Problems Reviewed?: Yes Problems/Diagnosis: (1) Status post section Assessment & Plan: Postop day #2 DC to home DC instructions given. (2) Anemia during puerperium (3) 39 weeks gestation of Assessment & Plan: Patient is status post section doing well no concerns. She was discharged to home on postop day #2. (4) Failure to progress in labor (5) intolerance to labor, delivered, current hospitalization Hospital Course Date of Admission: Aug 26, 2022 at 18:00 Admission Diagnosis : Family Physician/Provider: Esperanza,Local Physician Date of Discharge: 08/29/22 Discharge Diagnosis: Status post section liveborn Hospital Course: Patient was admitted for induction of labor she had a failure to progress with intolerance to labor and underwent a low-transverse section for which she delivered a liveborn male . She did very well postoperatively. She was breast-feeding. Her pain was well controlled. On postop day #2 she wa s discharged home with pain medications and instructions. Labs and Pending Lab Test: Home Meds Active Hydrocodone-Acetamin 5-325 mg (Hydrocodone/Acetaminophen) 5 Mg-325 Mg Tablet 1 Ea PO Q4H PRN Hydrocodone-Acetamin 5-325 mg (Hydrocodone/Acetaminophen) 5 Mg-325 Mg Tablet 2 Ea PO Q4H PRN take 1 tablet every 4hrs as needed for pain Augmentin 875-125 Tablet (Amoxicillin/Potassium Clav) 1 Each Tablet 1 Each PO BID 7 Days Ibu (Ibuprofen) 600 Mg Tablet 600 Mg PO Q6HR Reported 19 Tablet (Cuu689/Iron Fumarate/FA/Dss) 1 Each Tablet 1 Each PO DAILY Activity: Activity as Tolerated Driving Instructions: No Driving for 1 Week NO SMOKING: NO SMOKING Nothing Inside Vagina: No Douching, No Sherrill Discharge Diet: Regular Diet Symptoms to Report to : Appetite Changes, Pain Increased, Fever Over 101 Degrees F, Pain/Pressure in Chest, Vaginal Bleeding Increase For Any Problems or Questions: Contact Your Physician Infection Signs and Symptoms: Increased Redness, Foul Odor of Wound, Increased Drainage, Skin Itchy or Has a Rash, Increased Swelling, Temperature Above 101 F Operative Area Clean and Dry: Keep Incision Clean/Dry Stitches/[place]/Dermabond: Dermabond Discharge Physical Examination Allergies: Coded Allergies: NKANo Known Allergies (Unverified Allergy, Mild, 07/09/09) Vitals & I&Os Vital Signs Date Time Temp Pulse Resp B/P (MAP) Pulse Ox O2 Delivery O2 Flow Rate FiO2 08/29/22 05:59 36.7 74 18 134/80 (98) 99 Room Air Discharge Summary Date of Admission Aug 26, 2022 at 18:00 Date of Discharge Discharge Date: Aug 29, 2022 Discharge Diagnosis (1) 39 weeks gestation of (2) Failure to progress in labor Assessment & Plan: proceed to LTCS (3) intolerance to labor, delivered, current hospitalization Supervisory-Addendum Brief Verification & Attestation Participated in pt care: history, MDM, physical Personally performed: exam, history, MDM, supervision of care Care discussed with: other (NA) Procedures: n/a Results interpretation: Verified all documentation I saw and evaluated this patient personally JESSICA WEI DO Aug 29, 2022 07:26
[2022-08-29] MEDS: DOCUSATE SODIUM 100 MG (COLACE) CAP PO SCH (08:37)
[2022-08-29 08:38] VITALS: BP 118/61
[2022-08-29] MEDS: HYDROcodone/APAP 5 MG/325 MG (LORTAB) TAB PO PRN (08:38)
[2022-08-29 10:45] VITALS: BP 118/61
== END 2022-08-29 10:45 | disposition home or self-care (01) | DRG 788 ==
LOC: LDRP 18:00
PROVIDERS: ADMIT Family Medicine; ATTEND Family Medicine
PROC: 10D00Z1 Extraction of Products of Conception, Low, Open Approach (ICD-10-PCS; principal; 2022-08-27 22:43)
DX: O76 Abnormality in fetal heart rate and rhythm complicating labor and delivery (principal); Z3A.39 39 weeks gestation of pregnancy; Z37.0 Single live birth; O62.0 Primary inadequate contractions; O90.81 Anemia of the puerperium; D64.9 Anemia, unspecified
CPT/HCPCS: 36415; 81000; 85025; 86780; 86850; 86900; 86901; 94664